=== PATIENT | female | born 1970 | race Caucasian/White ===

== ENCOUNTER → 2017-03-30 | Outpatient (CLI) | payer BC ==
[~2017-03-30] MED LIST: NO HOME MEDICATIONS
== END ==
LOC: COL.RAD 12:00
DX: N92.6 Irregular menstruation, unspecified (principal)

== ENCOUNTER → 2022-03-08 | Outpatient (CLI) | payer BC | LOC: MC.RAD 13:55 | DX: N63.10 Unspecified lump in the right breast, unspecified quadrant (principal); R92.1 Mammographic calcification found on diagnostic imaging of breast; Z90.13 Acquired absence of bilateral breasts and nipples; Z85.3 Personal history of malignant neoplasm of breast ==